=== PATIENT | male | born 1975 | race Caucasian/White ===

== ENCOUNTER 2020-01-04 19:17 | Inpatient (IN) | payer MEDICAID ==
--- NOTE | 2020-01-04 19:33 | ERPHSYRPT ---
- History of Present Illness Time Seen by Provider: 01/04/20 19:20 Source: patient Exam Limitations: no limitations Physician History: Pt states he has had decreased appetite and abdominal pain today. Pt c/o seizure activity with weakness in the legs about 90 minutes ago. Last BM was today & wnl. Pt states he vomited x2 within the past 90 minutes. Pt denies chest pain, shortness of air, previous seizure, recent trauma. Allergies/Adverse Reactions: No Known Drug Allergies Allergy (Unverified 01/04/20 19:18) Home Medications: Lisinopril 20 mg [Zestril 20 MG] 1 tab PO DAILY 01/04/20 [History] - Review of Systems Constitutional: No Fever Respiratory: No Dyspnea Cardiac: No Chest Pain Abdominal/Gastrointestinal: Abdominal Pain, Vomiting, Appetite Changes (decreased today), No Diarrhea Neurological: Seizure, Other (weakness in the legs), No Headache All Other Systems: Reviewed and Negative - Nursing Vital Signs Nursing Vital Signs: Initial Vital Signs Pulse Rate 106 H 01/04/20 19:18 Respiratory Rate 20 01/04/20 19:18 Blood Pressure 158/125 01/04/20 19:18 O2 Sat by Pulse Oximetry 98 01/04/20 19:18 Pain Scale Pain Intensity 0 - Physical Exam Eye Exam: bilateral eye: PERRL, EOMI Ears, Nose, Throat Exam: TMs normal, pharynx normal Neck Exam: normal inspection Respiratory: normal breath sounds Cardiovascular: normal heart sounds Gastrointestinal: soft, normal bowel sounds Back Exam: normal inspection Extremity Exam: normal range of motion Peripheral Pulses: dorsalis-pedis (R): 2+, dorsalis-pedis (L): 2+ 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 No acute intracranial abnormaliuty.) Abdomen/Pelvis CT Interpretation: Tele-radiologist Report (Fatty infiltration of the liver. Possible sludge in the gallbladder. No pericholecystic inflammatory change. No biliary dilatation. Very mild nonspecific perinephric stranding. No hydronephrosis. No renal or ureteral stones. No evidence of appendicitis, colitis or diverticulitis.) Ordered Tests: Active Orders 24 hr Category Date Time Status EKG-ER Only STAT Care 01/04/20 19:35 Active EKG-ER Only STAT Care 01/05/20 00:29 Active IV Insertion STAT Care 01/04/20 19:35 Active POCT Glucose Check STAT Care 01/04/20 19:35 Active Pulse Oximetry (ED) STAT Care 01/04/20 19:35 Active Seizure Precautions -SCCHED STAT Care 01/04/20 19:35 Active ABDOMEN AND PELVIS W/0 CONTRAS [CT] Stat Exams 01/04/20 21:49 Taken CHEST 1 VIEW (PORTABLE) Stat Exams 01/04/20 19:36 Completed HEAD WITHOUT CONTRAST [CT] Stat Exams 01/04/20 19:36 Taken BMP Stat Lab 01/05/20 00:58 Completed CBC W DIFF Stat Lab 01/04/20 19:59 Completed CMP Stat Lab 01/04/20 19:59 Completed CULTURE,URINE Stat Lab 01/04/20 19:36 Received ETHYL ALCOHOL Stat Lab 01/04/20 19:59 Completed MAGNESIUM Stat Lab 01/04/20 19:59 Completed POCT GLUCOSE Stat Lab 01/04/20 20:34 Completed TROPONIN Q3H Lab 01/04/20 19:59 Completed TROPONIN Q3H Lab 01/04/20 22:04 Completed TROPONIN Q3H Lab 01/05/20 00:58 Completed TROPONIN Q3H Lab 01/05/20 04:45 Ordered TROPONIN Q3H Lab 01/05/20 07:45 Ordered UA W/RFX UR CULTURE Stat Lab 01/04/20 19:36 Completed Urine Triage Profile Stat Lab 01/04/20 19:36 Completed Medication Summary Generic Name Dose Route Start Last Admin Trade Name Freq PRN Reason Stop Dose Admin Sodium Chloride 1,000 mls @ 100 mls/hr 01/04/20 19:45 01/04/20 20:00 Sodium Chloride 0.9% 1000 Ml IV 02/03/20 19:44 100 mls/hr .Q10H KAYLA Administration Discontinued Medications Generic Name Dose Route Start Last Admin Trade Name Freq PRN Reason Stop Dose Admin Fosphenytoin Sodium Confirm 01/04/20 19:53 Cerebyx 50 Mg/Ml Administered 01/04/20 19:54 Dose 500 mg .ROUTE .STK-MED ONE Fosphenytoin Sodium Confirm 01/04/20 23:31 Cerebyx 50 Mg/Ml Administered 01/04/20 23:32 Dose 500 mg .ROUTE .STK-MED ONE Fosphenytoin Sodium 500 mg/ 110 mls @ 300 mls/hr 01/04/20 19:35 01/04/20 20:00 Sodium Chloride IV 01/04/20 19:56 300 mls/hr STAT ONE Administration Sodium Chloride Confirm 01/04/20 19:52 Sodium Chloride 0.9% 100 Ml Ivpb Administered 01/04/20 19:53 Dose 100 mls @ ud IV .STK-MED ONE Potassium Chloride 20 meq in 100 mls @ 50 mls/hr 01/04/20 21:14 01/04/20 21:33 Potassium Chloride 20 Meq In Water 100ml IV 01/04/20 23:13 50 mls/hr STAT ONE Administration Potassium Chloride Confirm 01/04/20 21:20 Potassium Chloride 20 Meq In Water 100ml Administered 01/04/20 21:21 Dose 100 mls @ ud IV .STK-MED ONE Fosphenytoin Sodium 500 mg/ 110 mls @ 300 mls/hr 01/04/20 23:25 01/04/20 23:37 Sodium Chloride IV 01/04/20 23:46 300 mls/hr STAT ONE Administration Sodium Chloride Confirm 01/04/20 23:31 Sodium Chloride 0.9% 100 Ml Ivpb Administered 01/04/20 23:32 Dose 100 mls @ ud IV .STK-MED ONE Lorazepam 1 mg 01/04/20 19:35 01/04/20 20:00 Ativan 2 Mg/1 Ml Vial IV 01/04/20 19:36 1 mg STAT ONE Administration Lorazepam Confirm 01/04/20 19:52 Ativan 2 Mg/1 Ml Vial Administered 01/04/20 19:53 Dose 2 mg .ROUTE .STK-MED ONE Lorazepam 2 mg 01/05/20 00:32 01/05/20 00:44 Ativan 2 Mg/1 Ml Vial IV 01/05/20 00:33 Not Given STAT ONE Lorazepam Confirm 01/05/20 00:42 Ativan 2 Mg/1 Ml Vial Administered 01/05/20 00:43 Dose 2 mg .ROUTE .STK-MED ONE Lorazepam 2 mg 01/05/20 00:44 01/05/20 00:47 Ativan 2 Mg/1 Ml Vial IM 01/05/20 00:45 2 mg STAT ONE Administration Lab/Rad Data: Laboratory Result Diagrams 01/04/20 19:59 01/05/20 00:58 Laboratory Results 01/05/20 01/05/20 01/04/20 Range/Units 00:58 00:58 22:04 WBC (4.0-10.5) K/mm3 RBC (4.1-5.6) M/mm3 Hgb (12.5-18.0) gm/dl Hct (42-50) % MCV (78-100) fl MCH (26-32) pg MCHC (32-36) g/dl RDW (11.5-14.0) % Plt Count (150-450) K/mm3 MPV (7.5-11.0) fl Gran % (36.0-66.0) % Eos # (Auto) (0-0.5) Absolute Lymphs (auto) (1.0-4.6) Absolute Monos (auto) (0.0-1.3) Lymphocytes % (24.0-44.0) % Monocytes % (0.0-12.0) % Eosinophils % (0.00-5.0) % Basophils % (0.0-0.4) % Absolute Granulocytes (1.4-6.9) Basophils # (0-0.4) Sodium 130 L (137-145) mmol/L Potassium 3.4 L (3.5-5.1) mmol/L Chloride 95 L (98-107) mmol/L Carbon Dioxide 26 (22-30) mmol/L Anion Gap 12.5 (5-15) MEQ/L BUN 9 (9-20) mg/dL Creatinine 0.92 (0.66-1.25) mg/dL Estimated GFR > 60.0 ML/MIN Glucose 106 (74-106) mg/dL POC Glucometer (74 to 106) mg/dL Calcium 8.6 (8.4-10.2) mg/dL Magnesium (1.6-2.3) mg/dL Total Bilirubin (0.2-1.3) mg/dL AST (17-59) U/L ALT (0-50) U/L Alkaline Phosphatase (38-126) U/L Ammonia < 9 L (9-30) umol/L Troponin I 0.013 (0.000-0.034) ng/mL Serum Total Protein (6.3-8.2) g/dL Albumin (3.5-5.0) g/dL Urine Color (YELLOW) Urine Appearance (CLEAR) Urine pH (5-6) Ur Specific [place] (1.005-1.025) Urine Protein (Negative) Urine Ketones (NEGATIVE) Urine Blood (0-5) Jorge/ul Urine Nitrite (NEGATIVE) Urine Bilirubin (NEGATIVE) Urine Urobilinogen (0-1) mg/dL Ur Leukocyte Esterase (NEGATIVE) Urine WBC (Auto) (0-5) /HPF Urine RBC (Auto) (0-2) /HPF U Hyaline Cast (Auto) (0-2) /LPF U Epithel Cells (Auto) (FEW) /HPF Urine Bacteria (Auto) (NEGATIVE) /HPF Urine Mucus (Auto) (NEGATIVE) /HPF Urine Culture Reflexed (NO) Urine Glucose (NEGATIVE) mg/dL Urine Opiates Level (NEGATIVE) Ur Methadone (NEGATIVE) Urine Barbiturates (NEGATIVE) Ur Phencyclidine (PCP) (NEGATIVE) Urine Amphetamine (NEGATIVE) U Benzodiazepine Level (NEGATIVE) Urine Cocaine (NEGATIVE) Urine Marijuana (THC) (NEGATIVE) Ethyl Alcohol (0-10) mg/dL 01/04/20 01/04/20 01/04/20 Range/Units 22:04 20:34 19:59 WBC (4.0-10.5) K/mm3 RBC (4.1-5.6) M/mm3 Hgb (12.5-18.0) gm/dl Hct (42-50) % MCV (78-100) fl MCH (26-32) pg MCHC (32-36) g/dl RDW (11.5-14.0) % Plt Count (150-450) K/mm3 MPV (7.5-11.0) fl Gran % (36.0-66.0) % Eos # (Auto) (0-0.5) Absolute Lymphs (auto) (1.0-4.6) Absolute Monos (auto) (0.0-1.3) Lymphocytes % (24.0-44.0) % Monocytes % (0.0-12.0) % Eosinophils % (0.00-5.0) % Basophils % (0.0-0.4) % Absolute Granulocytes (1.4-6.9) Basophils # (0-0.4) Sodium (137-145) mmol/L Potassium (3.5-5.1) mmol/L Chloride (98-107) mmol/L Carbon Dioxide (22-30) mmol/L Anion Gap (5-15) MEQ/L BUN (9-20) mg/dL Creatinine (0.66-1.25) mg/dL Estimated GFR ML/MIN Glucose (74-106) mg/dL POC Glucometer 131 H (74 to 106) mg/dL Calcium (8.4-10.2) mg/dL Magnesium (1.6-2.3) mg/dL Total Bilirubin (0.2-1.3) mg/dL AST (17-59) U/L ALT (0-50) U/L Alkaline Phosphatase (38-126) U/L Ammonia (9-30) umol/L Troponin I < 0.012 < 0.012 (0.000-0.034) ng/mL Serum Total Protein (6.3-8.2) g/dL Albumin (3.5-5.0) g/dL Urine Color (YELLOW) Urine Appearance (CLEAR) Urine pH (5-6) Ur Specific [place] (1.005-1.025) Urine Protein (Negative) Urine Ketones (NEGATIVE) Urine Blood (0-5) Jorge/ul Urine Nitrite (NEGATIVE) Urine Bilirubin (NEGATIVE) Urine Urobilinogen (0-1) mg/dL Ur Leukocyte Esterase (NEGATIVE) Urine WBC (Auto) (0-5) /HPF Urine RBC (Auto) (0-2) /HPF U Hyaline Cast (Auto) (0-2) /LPF U Epithel Cells (Auto) (FEW) /HPF Urine Bacteria (Auto) (NEGATIVE) /HPF Urine Mucus (Auto) (NEGATIVE) /HPF Urine Culture Reflexed (NO) Urine Glucose (NEGATIVE) mg/dL Urine Opiates Level (NEGATIVE) Ur Methadone (NEGATIVE) Urine Barbiturates (NEGATIVE) Ur Phencyclidine (PCP) (NEGATIVE) Urine Amphetamine (NEGATIVE) U Benzodiazepine Level (NEGATIVE) Urine Cocaine (NEGATIVE) Urine Marijuana (THC) (NEGATIVE) Ethyl Alcohol (0-10) mg/dL 01/04/20 01/04/20 01/04/20 Range/Units 19:59 19:59 19:36 WBC 10.9 H (4.0-10.5) K/mm3 RBC 3.64 L (4.1-5.6) M/mm3 Hgb 12.9 (12.5-18.0) gm/dl Hct 39.0 L (42-50) % MCV 107.1 H (78-100) fl MCH 35.4 H (26-32) pg MCHC 33.1 (32-36) g/dl RDW 12.8 (11.5-14.0) % Plt Count 114 L (150-450) K/mm3 MPV 11.2 H (7.5-11.0) fl Gran % 82.2 H (36.0-66.0) % Eos # (Auto) 0 (0-0.5) Absolute Lymphs (auto) 0.69 L (1.0-4.6) Absolute Monos (auto) 1.21 (0.0-1.3) Lymphocytes % 6.3 L (24.0-44.0) % Monocytes % 11.1 (0.0-12.0) % Eosinophils % 0.0 (0.00-5.0) % Basophils % 0.4 (0.0-0.4) % Absolute Granulocytes 8.99 H (1.4-6.9) Basophils # 0.04 (0-0.4) Sodium 131 L (137-145) mmol/L Potassium 3.1 L (3.5-5.1) mmol/L Chloride 90 L (98-107) mmol/L Carbon Dioxide 21 L (22-30) mmol/L Anion Gap 22.8 H (5-15) MEQ/L BUN 9 (9-20) mg/dL Creatinine 1.03 (0.66-1.25) mg/dL Estimated GFR > 60.0 ML/MIN Glucose 139 H (74-106) mg/dL POC Glucometer (74 to 106) mg/dL Calcium 9.2 (8.4-10.2) mg/dL Magnesium 1.6 (1.6-2.3) mg/dL Total Bilirubin 1.60 H (0.2-1.3) mg/dL AST 137 H (17-59) U/L ALT 74 H (0-50) U/L Alkaline Phosphatase 168 H (38-126) U/L Ammonia (9-30) umol/L Troponin I (0.000-0.034) ng/mL Serum Total Protein 7.2 (6.3-8.2) g/dL Albumin 3.9 (3.5-5.0) g/dL Urine Color (YELLOW) Urine Appearance (CLEAR) Urine pH (5-6) Ur Specific [place] (1.005-1.025) Urine Protein (Negative) Urine Ketones (NEGATIVE) Urine Blood (0-5) Jorge/ul Urine Nitrite (NEGATIVE) Urine Bilirubin (NEGATIVE) Urine Urobilinogen (0-1) mg/dL Ur Leukocyte Esterase (NEGATIVE) Urine WBC (Auto) (0-5) /HPF Urine RBC (Auto) (0-2) /HPF U Hyaline Cast (Auto) (0-2) /LPF U Epithel Cells (Auto) (FEW) /HPF Urine Bacteria (Auto) (NEGATIVE) /HPF Urine Mucus (Auto) (NEGATIVE) /HPF Urine Culture Reflexed (NO) Urine Glucose (NEGATIVE) mg/dL Urine Opiates Level NEGATIVE (NEGATIVE) Ur Methadone NEGATIVE (NEGATIVE) Urine Barbiturates NEGATIVE (NEGATIVE) Ur Phencyclidine (PCP) NEGATIVE (NEGATIVE) Urine Amphetamine NEGATIVE (NEGATIVE) U Benzodiazepine Level NEGATIVE (NEGATIVE) Urine Cocaine NEGATIVE (NEGATIVE) Urine Marijuana (THC) NEGATIVE (NEGATIVE) Ethyl Alcohol < 10 (0-10) mg/dL 01/04/20 Range/Units 19:36 WBC (4.0-10.5) K/mm3 RBC (4.1-5.6) M/mm3 Hgb (12.5-18.0) gm/dl Hct (42-50) % MCV (78-100) fl MCH (26-32) pg MCHC (32-36) g/dl RDW (11.5-14.0) % Plt Count (150-450) K/mm3 MPV (7.5-11.0) fl Gran % (36.0-66.0) % Eos # (Auto) (0-0.5) Absolute Lymphs (auto) (1.0-4.6) Absolute Monos (auto) (0.0-1.3) Lymphocytes % (24.0-44.0) % Monocytes % (0.0-12.0) % Eosinophils % (0.00-5.0) % Basophils % (0.0-0.4) % Absolute Granulocytes (1.4-6.9) Basophils # (0-0.4) Sodium (137-145) mmol/L Potassium (3.5-5.1) mmol/L Chloride (98-107) mmol/L Carbon Dioxide (22-30) mmol/L Anion Gap (5-15) MEQ/L BUN (9-20) mg/dL Creatinine (0.66-1.25) mg/dL Estimated GFR ML/MIN Glucose (74-106) mg/dL POC Glucometer (74 to 106) mg/dL Calcium (8.4-10.2) mg/dL Magnesium (1.6-2.3) mg/dL Total Bilirubin (0.2-1.3) mg/dL AST (17-59) U/L ALT (0-50) U/L Alkaline Phosphatase (38-126) U/L Ammonia (9-30) umol/L Troponin I (0.000-0.034) ng/mL Serum Total Protein (6.3-8.2) g/dL Albumin (3.5-5.0) g/dL Urine Color GIA (YELLOW) Urine Appearance CLEAR (CLEAR) Urine pH 5.0 (5-6) Ur Specific [place] 1.021 (1.005-1.025) Urine Protein 100 (Negative) Urine Ketones SMALL (NEGATIVE) Urine Blood MODERATE (0-5) Jorge/ul Urine Nitrite NEGATIVE (NEGATIVE) Urine Bilirubin NEGATIVE (NEGATIVE) Urine Urobilinogen NEGATIVE (0-1) mg/dL Ur Leukocyte Esterase NEGATIVE (NEGATIVE) Urine WBC (Auto) 0-2 (0-5) /HPF Urine RBC (Auto) 0-2 (0-2) /HPF U Hyaline Cast (Auto) 6-10 (0-2) /LPF U Epithel Cells (Auto) RARE (FEW) /HPF Urine Bacteria (Auto) NONE SEEN (NEGATIVE) /HPF Urine Mucus (Auto) SLIGHT (NEGATIVE) /HPF Urine Culture Reflexed YES (NO) Urine Glucose NEGATIVE (NEGATIVE) mg/dL Urine Opiates Level (NEGATIVE) Ur Methadone (NEGATIVE) Urine Barbiturates (NEGATIVE) Ur Phencyclidine (PCP) (NEGATIVE) Urine Amphetamine (NEGATIVE) U Benzodiazepine Level (NEGATIVE) Urine Cocaine (NEGATIVE) Urine Marijuana (THC) (NEGATIVE) Ethyl Alcohol (0-10) mg/dL - Progress Progress: improved Discussed with Dr.: Mendoza (obs icu) - Departure Departure Disposition: Observation Clinical Impression: New onset seizure, Tachycardia, Abdominal pain, Vomiting, Hypokalemia Condition: Stable Critical Care Time: No Referrals: DOCTOR,NO FAMILY [Primary Care Provider] -
[2020-01-04] MEDS ORDERED: Ativan 2 MG/1 ML VIAL IV ONE (19:35)
[2020-01-04] MEDS ORDERED: cereBYX 50 MG/ML*** 500 MG in Sodium Chloride 0.9% 100 ML IVPB 100 ML IV ONE ×2 (19:35→23:25)
[2020-01-04] MEDS ORDERED: Sodium Chloride 0.9% 1000 ML 1,000 ML IV SCH (19:45)
[2020-01-04] MEDS ORDERED: Ativan 2 MG/1 ML VIAL ONE (19:52)
[2020-01-04] MEDS ORDERED: Sodium Chloride 0.9% 100 ML IVPB 100 ML IV ONE ×2 (19:52→23:31)
[2020-01-04] MEDS ORDERED: Sodium Chloride 0.9% 1000 ML 1,000 ML ONE (19:53)
[2020-01-04] MEDS ORDERED: cereBYX 50 MG/ML ONE ×2 (19:53→23:31)
[2020-01-04 20:13] LABS: Absolute Neutrophil Ct (ANC) 8.99 (1.4-6.9); BASOPHIL % 0.4 % (0.0-0.4); Basophil (Absolute #) 0.04 (0-0.4); Eosinophil (Absolute #) 0 (0-0.5); Hemoglobin 12.9 gm/dl (12.5-18.0); Lymphocyte (Absolute #) 0.69 (1.0-4.6); Lymphocytes % 6.3 % (24.0-44.0); Mean Cell Volume 107.1 fl (78-100); Mean Corpuscular Hemoglobin 35.4 pg (26-32); Mean Corpuscular Hgb Concent. 33.1 g/dl (32-36); Mean Platelet Volume 11.2 fl (7.5-11.0); Monocyte (Absolute #) 1.21 (0.0-1.3); Monocytes % 11.1 % (0.0-12.0); Neutrophil % 82.2 % (36.0-66.0); Platelet Count 114 K/mm3 (150-450); Red Blood Count 3.64 M/mm3 (4.1-5.6); Red Cell Distribution Width 12.8 % (11.5-14.0); White Blood Count 10.9 K/mm3 (4.0-10.5)
[2020-01-04 20:20] LABS: ALBUMIN 3.9 g/dL (3.5-5.0); ALKALINE PHOSPHATASE 168 U/L (38-126); ANION GAP 22.8 MEQ/L (5-15); BLOOD UREA NITROGEN 9 mg/dL (9-20); CHLORIDE 90 mmol/L (98-107); Calcium 9.2 mg/dL (8.4-10.2); Carbon Dioxide 21 mmol/L (22-30); Creatinine 1 1.03 mg/dL (0.66-1.25); EST GLOMERULAR FILTRATION RATE > 60.0 ML/MIN; Glucose 139 mg/dL (74-106); MAGNESIUM 1.6 mg/dL (1.6-2.3); Potassium 3.1 mmol/L (3.5-5.1); SGOT/AST 137 U/L (17-59); SODIUM 131 mmol/L (137-145); Total Protein 7.2 g/dL (6.3-8.2)
[2020-01-04 20:26] LABS: SGPT/ALT 74 U/L (0-50)
[2020-01-04 20:37] LABS: ETHYL ALCOHOL < 10 mg/dL (0-10)
[2020-01-04 20:57] LABS: Amphetamine,Urine NEGATIVE (NEGATIVE); Barbiturate,Urine NEGATIVE (NEGATIVE); Benzodiazepine,Urine NEGATIVE (NEGATIVE); Cocaine,Urine NEGATIVE (NEGATIVE); Methadone,Urine NEGATIVE (NEGATIVE); Opiate,Urine NEGATIVE (NEGATIVE); PCP,Urine NEGATIVE (NEGATIVE); THC,Urine NEGATIVE (NEGATIVE)
--- NOTE | 2020-01-04 20:59 | XRAY ---
Indication: Seizure. Comparison: None Portable chest demonstrates normal heart, lungs, and bony thorax.
[2020-01-04 21:01] LABS: Appearance CLEAR (CLEAR); Bilirubin NEGATIVE (NEGATIVE); Blood MODERATE Ery/ul (0-5); Epithelial Cells RARE /HPF (FEW); Glucose NEGATIVE (NEGATIVE); Ketones SMALL (NEGATIVE); Leukocyte Esterase NEGATIVE (NEGATIVE); Mucus SLIGHT /HPF (NEGATIVE); Nitrite NEGATIVE (NEGATIVE); Protein,Urine Dip 100 (Negative); RBC 0-2 /HPF (0-2); Specific Gravity 1.021 (1.005-1.025); Urobilinogen NEGATIVE mg/dL (0-1); WBC 0-2 /HPF (0-5)
[2020-01-04 21:02] LABS: Bacteria NONE SEEN /HPF (NEGATIVE)
[2020-01-04] MEDS ORDERED: POTASSIUM CHLORIDE 20 mEq IN WATER 100ML 20 MEQ/100 ML BAG IV ONE (21:14)
[2020-01-04] MEDS ORDERED: POTASSIUM CHLORIDE 20 mEq IN WATER 100ML 100 ML IV ONE (21:20)
[2020-01-05] MEDS ORDERED: Ativan 2 MG/1 ML VIAL IV ONE (00:32)
[2020-01-05] MEDS ORDERED: Ativan 2 MG/1 ML VIAL ONE (00:42)
[2020-01-05] MEDS ORDERED: Ativan 2 MG/1 ML VIAL IM ONE (00:44)
[2020-01-05 01:13] LABS: ANION GAP 12.5 MEQ/L (5-15); BLOOD UREA NITROGEN 9 mg/dL (9-20); CHLORIDE 95 mmol/L (98-107); Calcium 8.6 mg/dL (8.4-10.2); Carbon Dioxide 26 mmol/L (22-30); Creatinine 1 0.92 mg/dL (0.66-1.25); EST GLOMERULAR FILTRATION RATE > 60.0 ML/MIN; Glucose 106 mg/dL (74-106); Potassium 3.4 mmol/L (3.5-5.1); SODIUM 130 mmol/L (137-145)
[2020-01-05] MEDS ORDERED: POTASSIUM CHLORIDE 20 mEq IN WATER 100ML 20 MEQ/100 ML BAG IV ONE (01:38)
[2020-01-05] MEDS ORDERED: Zofran 4 MG/2 ML VIAL IV PRN (01:38)
[2020-01-05] MEDS ORDERED: Sodium Chloride 0.9% 1000 ML 1,000 ML IV SCH (01:45)
[2020-01-05] MEDS ORDERED: TYLENOL 325 MG PO PRN (04:55)
[2020-01-05] MEDS ORDERED: TYLENOL 325 MG ONE (05:21)
[2020-01-05] MEDS: Ativan 2 MG/1 ML VIAL IV PRN ×5 (05:23→20:07)
[2020-01-05 06:02] LABS: Absolute Neutrophil Ct (ANC) 6.57 (1.4-6.9); BASOPHIL % 0.1 % (0.0-0.4); Basophil (Absolute #) 0.01 (0-0.4); Eosinophil (Absolute #) 0 (0-0.5); Hematocrit 34.2 % (42-50); Hemoglobin 11.4 gm/dl (12.5-18.0); Lymphocyte (Absolute #) 0.64 (1.0-4.6); Lymphocytes % 7.4 % (24.0-44.0); Mean Cell Volume 107.5 fl (78-100); Mean Corpuscular Hemoglobin 35.8 pg (26-32); Mean Corpuscular Hgb Concent. 33.3 g/dl (32-36); Mean Platelet Volume 11.4 fl (7.5-11.0); Monocyte (Absolute #) 1.48 (0.0-1.3); Neutrophil % 75.5 % (36.0-66.0); Platelet Count 91 K/mm3 (150-450); Red Blood Count 3.18 M/mm3 (4.1-5.6); Red Cell Distribution Width 12.7 % (11.5-14.0); White Blood Count 8.7 K/mm3 (4.0-10.5)
[2020-01-05 06:25] LABS: ALBUMIN 3.2 g/dL (3.5-5.0); ALKALINE PHOSPHATASE 125 U/L (38-126); ANION GAP 11.5 MEQ/L (5-15); BLOOD UREA NITROGEN 10 mg/dL (9-20); CHLORIDE 96 mmol/L (98-107); Calcium 8.5 mg/dL (8.4-10.2); Carbon Dioxide 27 mmol/L (22-30); Creatinine 1 0.95 mg/dL (0.66-1.25); EST GLOMERULAR FILTRATION RATE > 60.0 ML/MIN; Glucose 84 mg/dL (74-106); Potassium 3.6 mmol/L (3.5-5.1); SGOT/AST 86 U/L (17-59); SGPT/ALT 59 U/L (0-50); SODIUM 130 mmol/L (137-145); Total Protein 6.2 g/dL (6.3-8.2)
[2020-01-05 06:28] LABS: Slide Review 1 YES
[2020-01-05 06:32] LABS: TROPONIN < 0.012 ng/mL (0.000-0.034)
--- NOTE | 2020-01-05 07:03 | XRAY ---
Indication: Abdomen pain. Abnormal liver lab values. Multiple contiguous axial images obtained through the abdomen and pelvis without contrast as ordered. Comparison: None Lung bases are clear. Heart is not enlarged. Distal esophagus demonstrates circumferential wall thickening, possible esophagitis. Noncontrasted stomach and bowel loops appear nonobstructed. Appendix not seen. No free fluid/air. Diffuse fatty liver. Remaining gallbladder, pancreas, spleen, adrenal glands, kidneys, ureters, and bladder appear unremarkable for noncontrasted exam. Minimal aortic calcifications without AAA. Osseous structures intact. Impression: 1. Fatty liver. 2. Distal esophageal wall thickening. Rule out esophagitis. 3. Remaining CT abdomen/pelvis without contrast exam is negative. Comment: Preliminary interpretation was made by [facility]. No critical discrepancy.
--- NOTE | 2020-01-05 07:06 | XRAY ---
Indication: Seizure. Multiple contiguous axial images obtained through the head without contrast. Comparison: None Ventriculosulcal pattern appears symmetric. Age-appropriate atrophy. No acute intracranial hemorrhage, abnormal extra-axial fluid collection, or mass effect. Fourth ventricle is midline without hydrocephalus. Ch-white matter differentiation preserved. Bony calvarium intact. Visualized paranasal sinuses and mastoid air cells are clear. Impression: Negative CT head without contrast exam. Comment: Preliminary interpretation was made by [facility]. No critical discrepancy.
--- NOTE | 2020-01-05 09:20 | PCM.HP ---
History of Present Illness - Chief Complaint Chief Complaint: new onset seizure History of Present Illness: is a 44 year old male who was brought to the ER by a friend last night due to seizure activity. He is apparently from out of town and here camping, he has been drinking heavily around a fifth of hard liquor daily for the last year. He is very difficult to understand, he is a poor historian but he is oriented to self and place. He first states he quit drinking a week or two ago, when pressed about last drink he states "maybe half of that" and agrees upon in the last 3-4 days. He complains of some pain in his upper stomach, no vomiting. states he takes bp meds, denies any illicit drug use, he did have a witnessed seizure in ER apparently. - Review of Systems Constitutional: No Fever, No Chills Respiratory: No Cough, No Short Of Breath Cardiac: No Chest Pain, No Edema, No Syncope Abdominal/Gastrointestinal: Abdominal Pain, No Nausea, No Vomiting, No Diarrhea Skin: No Rash Neurological: Seizure All Other Systems: Reviewed and Negative Medications & Allergies Home Medications: Home Medication List Lisinopril 20 mg [Zestril 20 MG] 1 tab PO DAILY 01/04/20 [History Confirmed 01/04/20] Allergies/Adverse Reactions: Allergies Allergy/AdvReac Type Severity Reaction Status Date / Time No Known Drug Allergies Allergy Unverified 01/04/20 19:18 - Past Medical History Past Medical History: Yes Neurological History: Seizures ENT History: No Pertinent History Cardiac History: Hypertension Respiratory History: No Pertinent History Endocrine Medical History: No Pertinent History Musculoskelatal History: No Pertinent History GI Medical History: No Pertinent History History: No Pertinent History Pyscho-Social History: No Pertinent History Male Reproductive Disorders: STD's Comment: hx chylamidia - Past Surgical History Past Surgical History: No Neuro Surgical History: No Pertinent History Cardiac History: No Pertinent History Respiratory Surgery: No Pertinent History GI Surgical History: No Pertinent History Genitourinary Surgical Hx: No Pertinent History Musculskeletal Surgical Hx: No Pertinent History Male Surgical History: No Pertinent History - Social History Smoking Status: Former smoker Exposure to second hand smoke: No Alcohol: Daily Drug Use: marijuana - Physical Exam Vital Signs: Vital Signs - 24 hr Temp Pulse Resp BP Pulse Ox 01/05/20 08:00 99.3 F 87 18 158/104 95 01/05/20 04:45 117 H 16 97 01/05/20 04:14 98.4 F 109 H 18 144/106 96 01/05/20 01:37 98 01/05/20 01:00 112 H 16 141/103 97 01/05/20 00:00 116 H 16 136/94 97 01/04/20 23:00 96 H 18 150/113 99 01/04/20 22:00 112 H 18 164/114 98 01/04/20 21:00 118 H 18 163/118 95 01/04/20 20:18 126 H 20 176/116 98 01/04/20 19:35 97 01/04/20 19:18 106 H 20 158/125 98 General Appearance: no apparent distress Neurologic Exam: alert, cooperative, intoxicated appearance, slurred speech, other (tremor, shaking present. difficult to formulate sentences but requiring recurrent ativan doses on detox protocol, mildly hypertensive and tachycardic, tremulous) Respiratory Exam: normal breath sounds, lungs clear, No respiratory distress Cardiovascular Exam: regular rate/rhythm, normal heart sounds, normal peripheral pulses Gastrointestinal/Abdomen Exam: soft, normal bowel sounds, No tenderness, No mass Skin Exam: normal color, warm, dry, No rash Results - Labs Lab/Micro Results: Lab Results-Last 24 Hours 01/04/20 01/04/20 01/04/20 Range/Units 19:36 19:36 19:59 WBC 10.9 H (4.0-10.5) K/mm3 RBC 3.64 L (4.1-5.6) M/mm3 Hgb 12.9 (12.5-18.0) gm/dl Hct 39.0 L (42-50) % MCV 107.1 H (78-100) fl MCH 35.4 H (26-32) pg MCHC 33.1 (32-36) g/dl RDW 12.8 (11.5-14.0) % Plt Count 114 L (150-450) K/mm3 MPV 11.2 H (7.5-11.0) fl Gran % 82.2 H (36.0-66.0) % Eos # (Auto) 0 (0-0.5) Absolute Lymphs (auto) 0.69 L (1.0-4.6) Absolute Monos (auto) 1.21 (0.0-1.3) Lymphocytes % 6.3 L (24.0-44.0) % Monocytes % 11.1 (0.0-12.0) % Eosinophils % 0.0 (0.00-5.0) % Basophils % 0.4 (0.0-0.4) % Absolute Granulocytes 8.99 H (1.4-6.9) Basophils # 0.04 (0-0.4) Sodium (137-145) mmol/L Potassium (3.5-5.1) mmol/L Chloride (98-107) mmol/L Carbon Dioxide (22-30) mmol/L Anion Gap (5-15) MEQ/L BUN (9-20) mg/dL Creatinine (0.66-1.25) mg/dL Estimated GFR ML/MIN Glucose (74-106) mg/dL POC Glucometer (74 to 106) mg/dL Calcium (8.4-10.2) mg/dL Magnesium (1.6-2.3) mg/dL Total Bilirubin (0.2-1.3) mg/dL AST (17-59) U/L ALT (0-50) U/L Alkaline Phosphatase (38-126) U/L Ammonia (9-30) umol/L Troponin I (0.000-0.034) ng/mL Serum Total Protein (6.3-8.2) g/dL Albumin (3.5-5.0) g/dL Urine Color GIA (YELLOW) Urine Appearance CLEAR (CLEAR) Urine pH 5.0 (5-6) Ur Specific [place] 1.021 (1.005-1.025) Urine Protein 100 (Negative) Urine Ketones SMALL (NEGATIVE) Urine Blood MODERATE (0-5) Jorge/ul Urine Nitrite NEGATIVE (NEGATIVE) Urine Bilirubin NEGATIVE (NEGATIVE) Urine Urobilinogen NEGATIVE (0-1) mg/dL Ur Leukocyte Esterase NEGATIVE (NEGATIVE) Urine WBC (Auto) 0-2 (0-5) /HPF Urine RBC (Auto) 0-2 (0-2) /HPF U Hyaline Cast (Auto) 6-10 (0-2) /LPF U Epithel Cells (Auto) RARE (FEW) /HPF Urine Bacteria (Auto) NONE SEEN (NEGATIVE) /HPF Urine Mucus (Auto) SLIGHT (NEGATIVE) /HPF Urine Culture Reflexed YES (NO) Urine Glucose NEGATIVE (NEGATIVE) mg/dL Urine Opiates Level NEGATIVE (NEGATIVE) Ur Methadone NEGATIVE (NEGATIVE) Urine Barbiturates NEGATIVE (NEGATIVE) Ur Phencyclidine (PCP) NEGATIVE (NEGATIVE) Urine Amphetamine NEGATIVE (NEGATIVE) U Benzodiazepine Level NEGATIVE (NEGATIVE) Urine Cocaine NEGATIVE (NEGATIVE) Urine Marijuana (THC) NEGATIVE (NEGATIVE) Ethyl Alcohol (0-10) mg/dL Slides for Path Review 01/04/20 01/04/20 01/04/20 Range/Units 19:59 19:59 20:34 WBC (4.0-10.5) K/mm3 RBC (4.1-5.6) M/mm3 Hgb (12.5-18.0) gm/dl Hct (42-50) % MCV (78-100) fl MCH (26-32) pg MCHC (32-36) g/dl RDW (11.5-14.0) % Plt Count (150-450) K/mm3 MPV (7.5-11.0) fl Gran % (36.0-66.0) % Eos # (Auto) (0-0.5) Absolute Lymphs (auto) (1.0-4.6) Absolute Monos (auto) (0.0-1.3) Lymphocytes % (24.0-44.0) % Monocytes % (0.0-12.0) % Eosinophils % (0.00-5.0) % Basophils % (0.0-0.4) % Absolute Granulocytes (1.4-6.9) Basophils # (0-0.4) Sodium 131 L (137-145) mmol/L Potassium 3.1 L (3.5-5.1) mmol/L Chloride 90 L (98-107) mmol/L Carbon Dioxide 21 L (22-30) mmol/L Anion Gap 22.8 H (5-15) MEQ/L BUN 9 (9-20) mg/dL Creatinine 1.03 (0.66-1.25) mg/dL Estimated GFR > 60.0 ML/MIN Glucose 139 H (74-106) mg/dL POC Glucometer 131 H (74 to 106) mg/dL Calcium 9.2 (8.4-10.2) mg/dL Magnesium 1.6 (1.6-2.3) mg/dL Total Bilirubin 1.60 H (0.2-1.3) mg/dL AST 137 H (17-59) U/L ALT 74 H (0-50) U/L Alkaline Phosphatase 168 H (38-126) U/L Ammonia (9-30) umol/L Troponin I < 0.012 (0.000-0.034) ng/mL Serum Total Protein 7.2 (6.3-8.2) g/dL Albumin 3.9 (3.5-5.0) g/dL Urine Color (YELLOW) Urine Appearance (CLEAR) Urine pH (5-6) Ur Specific [place] (1.005-1.025) Urine Protein (Negative) Urine Ketones (NEGATIVE) Urine Blood (0-5) Jorge/ul Urine Nitrite (NEGATIVE) Urine Bilirubin (NEGATIVE) Urine Urobilinogen (0-1) mg/dL Ur Leukocyte Esterase (NEGATIVE) Urine WBC (Auto) (0-5) /HPF Urine RBC (Auto) (0-2) /HPF U Hyaline Cast (Auto) (0-2) /LPF U Epithel Cells (Auto) (FEW) /HPF Urine Bacteria (Auto) (NEGATIVE) /HPF Urine Mucus (Auto) (NEGATIVE) /HPF Urine Culture Reflexed (NO) Urine Glucose (NEGATIVE) mg/dL Urine Opiates Level (NEGATIVE) Ur Methadone (NEGATIVE) Urine Barbiturates (NEGATIVE) Ur Phencyclidine (PCP) (NEGATIVE) Urine Amphetamine (NEGATIVE) U Benzodiazepine Level (NEGATIVE) Urine Cocaine (NEGATIVE) Urine Marijuana (THC) (NEGATIVE) Ethyl Alcohol < 10 (0-10) mg/dL Slides for Path Review 01/04/20 01/04/20 01/05/20 Range/Units 22:04 22:04 00:58 WBC (4.0-10.5) K/mm3 RBC (4.1-5.6) M/mm3 Hgb (12.5-18.0) gm/dl Hct (42-50) % MCV (78-100) fl MCH (26-32) pg MCHC (32-36) g/dl RDW (11.5-14.0) % Plt Count (150-450) K/mm3 MPV (7.5-11.0) fl Gran % (36.0-66.0) % Eos # (Auto) (0-0.5) Absolute Lymphs (auto) (1.0-4.6) Absolute Monos (auto) (0.0-1.3) Lymphocytes % (24.0-44.0) % Monocytes % (0.0-12.0) % Eosinophils % (0.00-5.0) % Basophils % (0.0-0.4) % Absolute Granulocytes (1.4-6.9) Basophils # (0-0.4) Sodium (137-145) mmol/L Potassium (3.5-5.1) mmol/L Chloride (98-107) mmol/L Carbon Dioxide (22-30) mmol/L Anion Gap (5-15) MEQ/L BUN (9-20) mg/dL Creatinine (0.66-1.25) mg/dL Estimated GFR ML/MIN Glucose (74-106) mg/dL POC Glucometer (74 to 106) mg/dL Calcium (8.4-10.2) mg/dL Magnesium (1.6-2.3) mg/dL Total Bilirubin (0.2-1.3) mg/dL AST (17-59) U/L ALT (0-50) U/L Alkaline Phosphatase (38-126) U/L Ammonia < 9 L (9-30) umol/L Troponin I < 0.012 0.013 (0.000-0.034) ng/mL Serum Total Protein (6.3-8.2) g/dL Albumin (3.5-5.0) g/dL Urine Color (YELLOW) Urine Appearance (CLEAR) Urine pH (5-6) Ur Specific [place] (1.005-1.025) Urine Protein (Negative) Urine Ketones (NEGATIVE) Urine Blood (0-5) Jorge/ul Urine Nitrite (NEGATIVE) Urine Bilirubin (NEGATIVE) Urine Urobilinogen (0-1) mg/dL Ur Leukocyte Esterase (NEGATIVE) Urine WBC (Auto) (0-5) /HPF Urine RBC (Auto) (0-2) /HPF U Hyaline Cast (Auto) (0-2) /LPF U Epithel Cells (Auto) (FEW) /HPF Urine Bacteria (Auto) (NEGATIVE) /HPF Urine Mucus (Auto) (NEGATIVE) /HPF Urine Culture Reflexed (NO) Urine Glucose (NEGATIVE) mg/dL Urine Opiates Level (NEGATIVE) Ur Methadone (NEGATIVE) Urine Barbiturates (NEGATIVE) Ur Phencyclidine (PCP) (NEGATIVE) Urine Amphetamine (NEGATIVE) U Benzodiazepine Level (NEGATIVE) Urine Cocaine (NEGATIVE) Urine Marijuana (THC) (NEGATIVE) Ethyl Alcohol (0-10) mg/dL Slides for Path Review 01/05/20 01/05/20 01/05/20 Range/Units 00:58 05:45 05:45 WBC 8.7 (4.0-10.5) K/mm3 RBC 3.18 L (4.1-5.6) M/mm3 Hgb 11.4 L (12.5-18.0) gm/dl Hct 34.2 L (42-50) % MCV 107.5 H (78-100) fl MCH 35.8 H (26-32) pg MCHC 33.3 (32-36) g/dl RDW 12.7 (11.5-14.0) % Plt Count 91 L (150-450) K/mm3 MPV 11.4 H (7.5-11.0) fl Gran % 75.5 H (36.0-66.0) % Eos # (Auto) 0 (0-0.5) Absolute Lymphs (auto) 0.64 L (1.0-4.6) Absolute Monos (auto) 1.48 H (0.0-1.3) Lymphocytes % 7.4 L (24.0-44.0) % Monocytes % 17.0 H (0.0-12.0) % Eosinophils % 0.0 (0.00-5.0) % Basophils % 0.1 (0.0-0.4) % Absolute Granulocytes 6.57 (1.4-6.9) Basophils # 0.01 (0-0.4) Sodium 130 L 130 L (137-145) mmol/L Potassium 3.4 L 3.6 (3.5-5.1) mmol/L Chloride 95 L 96 L (98-107) mmol/L Carbon Dioxide 26 27 (22-30) mmol/L Anion Gap 12.5 11.5 (5-15) MEQ/L BUN 9 10 (9-20) mg/dL Creatinine 0.92 0.95 (0.66-1.25) mg/dL Estimated GFR > 60.0 > 60.0 ML/MIN Glucose 106 84 (74-106) mg/dL POC Glucometer (74 to 106) mg/dL Calcium 8.6 8.5 (8.4-10.2) mg/dL Magnesium (1.6-2.3) mg/dL Total Bilirubin 1.70 H (0.2-1.3) mg/dL AST 86 H (17-59) U/L ALT 59 H (0-50) U/L Alkaline Phosphatase 125 (38-126) U/L Ammonia (9-30) umol/L Troponin I < 0.012 (0.000-0.034) ng/mL Serum Total Protein 6.2 L (6.3-8.2) g/dL Albumin 3.2 L (3.5-5.0) g/dL Urine Color (YELLOW) Urine Appearance (CLEAR) Urine pH (5-6) Ur Specific [place] (1.005-1.025) Urine Protein (Negative) Urine Ketones (NEGATIVE) Urine Blood (0-5) Jorge/ul Urine Nitrite (NEGATIVE) Urine Bilirubin (NEGATIVE) Urine Urobilinogen (0-1) mg/dL Ur Leukocyte Esterase (NEGATIVE) Urine WBC (Auto) (0-5) /HPF Urine RBC (Auto) (0-2) /HPF U Hyaline Cast (Auto) (0-2) /LPF U Epithel Cells (Auto) (FEW) /HPF Urine Bacteria (Auto) (NEGATIVE) /HPF Urine Mucus (Auto) (NEGATIVE) /HPF Urine Culture Reflexed (NO) Urine Glucose (NEGATIVE) mg/dL Urine Opiates Level (NEGATIVE) Ur Methadone (NEGATIVE) Urine Barbiturates (NEGATIVE) Ur Phencyclidine (PCP) (NEGATIVE) Urine Amphetamine (NEGATIVE) U Benzodiazepine Level (NEGATIVE) Urine Cocaine (NEGATIVE) Urine Marijuana (THC) (NEGATIVE) Ethyl Alcohol (0-10) mg/dL Slides for Path Review YES 01/05/20 Range/Units 08:36 WBC (4.0-10.5) K/mm3 RBC (4.1-5.6) M/mm3 Hgb (12.5-18.0) gm/dl Hct (42-50) % MCV (78-100) fl MCH (26-32) pg MCHC (32-36) g/dl RDW (11.5-14.0) % Plt Count (150-450) K/mm3 MPV (7.5-11.0) fl Gran % (36.0-66.0) % Eos # (Auto) (0-0.5) Absolute Lymphs (auto) (1.0-4.6) Absolute Monos (auto) (0.0-1.3) Lymphocytes % (24.0-44.0) % Monocytes % (0.0-12.0) % Eosinophils % (0.00-5.0) % Basophils % (0.0-0.4) % Absolute Granulocytes (1.4-6.9) Basophils # (0-0.4) Sodium (137-145) mmol/L Potassium 3.5 (3.5-5.1) mmol/L Chloride (98-107) mmol/L Carbon Dioxide (22-30) mmol/L Anion Gap (5-15) MEQ/L BUN (9-20) mg/dL Creatinine (0.66-1.25) mg/dL Estimated GFR ML/MIN Glucose (74-106) mg/dL POC Glucometer (74 to 106) mg/dL Calcium (8.4-10.2) mg/dL Magnesium (1.6-2.3) mg/dL Total Bilirubin (0.2-1.3) mg/dL AST (17-59) U/L ALT (0-50) U/L Alkaline Phosphatase (38-126) U/L Ammonia (9-30) umol/L Troponin I (0.000-0.034) ng/mL Serum Total Protein (6.3-8.2) g/dL Albumin (3.5-5.0) g/dL Urine Color (YELLOW) Urine Appearance (CLEAR) Urine pH (5-6) Ur Specific [place] (1.005-1.025) Urine Protein (Negative) Urine Ketones (NEGATIVE) Urine Blood (0-5) Jorge/ul Urine Nitrite (NEGATIVE) Urine Bilirubin (NEGATIVE) Urine Urobilinogen (0-1) mg/dL Ur Leukocyte Esterase (NEGATIVE) Urine WBC (Auto) (0-5) /HPF Urine RBC (Auto) (0-2) /HPF U Hyaline Cast (Auto) (0-2) /LPF U Epithel Cells (Auto) (FEW) /HPF Urine Bacteria (Auto) (NEGATIVE) /HPF Urine Mucus (Auto) (NEGATIVE) /HPF Urine Culture Reflexed (NO) Urine Glucose (NEGATIVE) mg/dL Urine Opiates Level (NEGATIVE) Ur Methadone (NEGATIVE) Urine Barbiturates (NEGATIVE) Ur Phencyclidine (PCP) (NEGATIVE) Urine Amphetamine (NEGATIVE) U Benzodiazepine Level (NEGATIVE) Urine Cocaine (NEGATIVE) Urine Marijuana (THC) (NEGATIVE) Ethyl Alcohol (0-10) mg/dL Slides for Path Review Microbiology 01/04/20 19:36 Urine Culture - Preliminary Urine, Void NO GROWTH TO DATE Accuchecks Date 01/04/20 Time 20:35 - Radiology Impressions Radiology Exams & Impressions: Radiology Procedures Category Date Time Status ABDOMEN AND PELVIS W/0 CONTRAS [CT] Stat Exams 01/04/20 21:49 Completed CHEST 1 VIEW (PORTABLE) Stat Exams 01/04/20 19:36 Completed HEAD WITHOUT CONTRAST [CT] Stat Exams 01/04/20 19:36 Completed - Other Procedures and Tests Respiratory Therapy 01/05/20 01:38 Oxygen Nasal Cannula 2 lpm Assessment/Plan (1) Alcohol withdrawal Current Visit: Yes Status: Acute Code(s): F10.239 - ALCOHOL DEPENDENCE WITH WITHDRAWAL, UNSPECIFIED (2) Seizure Current Visit: Yes Status: Acute Assessment & Plan: likely related to alcohol withdrawal, will obtain teleneurology consult if able for recommendations as far as anti-eppileptic drugs in addition to ativan detox protocol. was loaded with cerebyx in ER Code(s): R56.9 - UNSPECIFIED CONVULSIONS
[2020-01-05] MEDS ORDERED: Dilantin 100 MG PO SCH (10:00)
[2020-01-05] MEDS ORDERED: VITAMIN B-1 100 MG PO SCH (10:00)
[2020-01-05] MEDS: Dextrose 5%-Lr IV Solution 1000 ML 1,000 ML IV SCH ×2 (10:52→21:27)
[2020-01-05] MEDS ORDERED: FLUZONE QUAD 2020-2021 SYRINGE IM ONE (12:00)
[2020-01-05] MEDS: THIAMINE 200 MG/2 ML IV SCH ×2 (14:06→21:05)
[2020-01-06 04:42] LABS: BASOPHIL % 0.4 % (0.0-0.4); Basophil (Absolute #) 0.02 (0-0.4); Eosinophil % 0.4 % (0.00-5.0); Eosinophil (Absolute #) 0.02 (0-0.5); Hematocrit 31.7 % (42-50); Hemoglobin 10.3 gm/dl (12.5-18.0); Lymphocyte (Absolute #) 0.83 (1.0-4.6); Lymphocytes % 18.2 % (24.0-44.0); Mean Cell Volume 109.3 fl (78-100); Mean Corpuscular Hemoglobin 35.5 pg (26-32); Mean Corpuscular Hgb Concent. 32.5 g/dl (32-36); Mean Platelet Volume 11.2 fl (7.5-11.0); Monocytes % 17.5 % (0.0-12.0); Neutrophil % 63.5 % (36.0-66.0); Platelet Count 85 K/mm3 (150-450); Red Cell Distribution Width 12.6 % (11.5-14.0); White Blood Count 4.6 K/mm3 (4.0-10.5)
[2020-01-06 05:03] LABS: ALBUMIN 2.6 g/dL (3.5-5.0); ALKALINE PHOSPHATASE 100 U/L (38-126); ANION GAP 5.7 MEQ/L (5-15); BLOOD UREA NITROGEN 10 mg/dL (9-20); CHLORIDE 101 mmol/L (98-107); Calcium 8.3 mg/dL (8.4-10.2); Carbon Dioxide 30 mmol/L (22-30); Creatinine 1 0.83 mg/dL (0.66-1.25); EST GLOMERULAR FILTRATION RATE > 60.0 ML/MIN; Glucose 101 mg/dL (74-106); MAGNESIUM 1.5 mg/dL (1.6-2.3); SGOT/AST 67 U/L (17-59); SGPT/ALT 44 U/L (0-50); SODIUM 134 mmol/L (137-145); Total Protein 5.3 g/dL (6.3-8.2)
[2020-01-06 06:53] LABS: Slide Review 1 YES
[2020-01-06] MEDS: Dextrose 5%-Lr IV Solution 1000 ML 1,000 ML IV SCH ×2 (07:26→17:49)
--- NOTE | 2020-01-06 08:21 | PCM.NOTE ---
Date and Time: 01/06/20815 Subjective Assessment: patient is much more alert and able to answer questions today, denies any pain. states he last drank alcohol the day he came to the hospital. Objective Exam General Appearance: no apparent distress Neurologic Exam: alert, oriented x 3, cooperative, No nml cerebellar function, No nml station & gait Skin Exam: normal color, warm, dry Eye Exam: PERRL, EOMI, eyes nml inspection Respiratory Exam: normal breath sounds, lungs clear, No respiratory distress Cardiovascular Exam: regular rate/rhythm, normal heart sounds Gastrointestinal/Abdomen Exam: soft, No tenderness, No mass Extremity Exam: normal inspection, normal range of motion OBJECTIVE DATA Vital Signs: Vital Signs - 24 hr Temp Pulse Resp BP Pulse Ox 01/06/20 08:00 79 01/06/20 07:32 98.2 F 85 21 164/113 98 01/06/20 04:00 98.1 F 91 H 18 156/116 97 01/06/20 00:01 97 H 01/06/20 00:00 97 H 22 98 01/05/20 20:02 98.8 F 97 H 22 158/98 96 01/05/20 20:00 89 01/05/20 19:12 96 01/05/20 16:00 98.2 F 118 H 18 145/103 99 01/05/20 12:00 98.9 F 99 H 18 142/97 Pain Assessment - Last Documented Pain Intensity 0 Intake and Output: Intake & Output 01/03/20 01/04/20 01/05/20 01/06/20 11:59 11:59 11:59 11:59 Intake Total 487 1840 Balance 487 1840 Weight 62 kg 63.7 kg Lab Results: Lab Results-Last 24 Hours 01/05/20 01/05/20 01/06/20 Range/Units 05:40 08:36 04:15 WBC 4.6 (4.0-10.5) K/mm3 RBC 2.90 L (4.1-5.6) M/mm3 Hgb 10.3 L (12.5-18.0) gm/dl Hct 31.7 L (42-50) % MCV 109.3 H (78-100) fl MCH 35.5 H (26-32) pg MCHC 32.5 (32-36) g/dl RDW 12.6 (11.5-14.0) % Plt Count 85 L (150-450) K/mm3 MPV 11.2 H (7.5-11.0) fl Gran % 63.5 (36.0-66.0) % Eos # (Auto) 0.02 (0-0.5) Absolute Lymphs (auto) 0.83 L (1.0-4.6) Absolute Monos (auto) 0.80 (0.0-1.3) Lymphocytes % 18.2 L (24.0-44.0) % Monocytes % 17.5 H (0.0-12.0) % Eosinophils % 0.4 (0.00-5.0) % Basophils % 0.4 (0.0-0.4) % Absolute Granulocytes 2.90 (1.4-6.9) Basophils # 0.02 (0-0.4) Sodium (137-145) mmol/L Potassium 3.5 (3.5-5.1) mmol/L Chloride (98-107) mmol/L Carbon Dioxide (22-30) mmol/L Anion Gap (5-15) MEQ/L BUN (9-20) mg/dL Creatinine (0.66-1.25) mg/dL Estimated GFR ML/MIN Glucose (74-106) mg/dL Calcium (8.4-10.2) mg/dL Magnesium (1.6-2.3) mg/dL Total Bilirubin (0.2-1.3) mg/dL AST (17-59) U/L ALT (0-50) U/L Alkaline Phosphatase (38-126) U/L Serum Total Protein (6.3-8.2) g/dL Albumin (3.5-5.0) g/dL Prealbumin 19.15 (17.6-36.0) mg/dL Slides for Path Review YES 01/06/20 Range/Units 04:15 WBC (4.0-10.5) K/mm3 RBC (4.1-5.6) M/mm3 Hgb (12.5-18.0) gm/dl Hct (42-50) % MCV (78-100) fl MCH (26-32) pg MCHC (32-36) g/dl RDW (11.5-14.0) % Plt Count (150-450) K/mm3 MPV (7.5-11.0) fl Gran % (36.0-66.0) % Eos # (Auto) (0-0.5) Absolute Lymphs (auto) (1.0-4.6) Absolute Monos (auto) (0.0-1.3) Lymphocytes % (24.0-44.0) % Monocytes % (0.0-12.0) % Eosinophils % (0.00-5.0) % Basophils % (0.0-0.4) % Absolute Granulocytes (1.4-6.9) Basophils # (0-0.4) Sodium 134 L (137-145) mmol/L Potassium 3.0 L (3.5-5.1) mmol/L Chloride 101 (98-107) mmol/L Carbon Dioxide 30 (22-30) mmol/L Anion Gap 5.7 (5-15) MEQ/L BUN 10 (9-20) mg/dL Creatinine 0.83 (0.66-1.25) mg/dL Estimated GFR > 60.0 ML/MIN Glucose 101 (74-106) mg/dL Calcium 8.3 L (8.4-10.2) mg/dL Magnesium 1.5 L (1.6-2.3) mg/dL Total Bilirubin 1.20 (0.2-1.3) mg/dL AST 67 H (17-59) U/L ALT 44 (0-50) U/L Alkaline Phosphatase 100 (38-126) U/L Serum Total Protein 5.3 L (6.3-8.2) g/dL Albumin 2.6 L (3.5-5.0) g/dL Prealbumin (17.6-36.0) mg/dL Slides for Path Review Radiology Exams: Radiology Procedures Category Date Time Status ABDOMEN AND PELVIS W/0 CONTRAS [CT] Stat Exams 01/04/20 21:49 Completed CHEST 1 VIEW (PORTABLE) Stat Exams 01/04/20 19:36 Completed HEAD WITHOUT CONTRAST [CT] Stat Exams 01/04/20 19:36 Completed MRI BRAIN WITH CONTRAST [MRI] Routine Exams 01/06/20 08:15 Ordered Assessment/Plan (1) Wernicke encephalopathy syndrome Current Visit: Yes Status: Acute Assessment & Plan: suspected based on history, significant impairment to finger to nose but no obvious eye abnormalities. will continue IV thiamine 500mg tid today, will attempt to complete teleneuro consult today. MRI brain ordered and EEG Code(s): E51.2 - WERNICKE'S ENCEPHALOPATHY (2) Alcohol withdrawal Current Visit: Yes Status: Acute Assessment & Plan: continue ativan via [facility] protocol Code(s): F10.239 - ALCOHOL DEPENDENCE WITH WITHDRAWAL, UNSPECIFIED (3) Seizure Current Visit: Yes Status: Acute Assessment & Plan: suspect alcohol withdrawal as culprit but history of last drink is very unclear, will attempt MRI and EEG today Code(s): R56.9 - UNSPECIFIED CONVULSIONS
[2020-01-06] MEDS ORDERED: K-LYTE 25 MEQ PO ONE (08:30)
[2020-01-06] MEDS: Magnesium 1 Gm / 100 Ml D5W*** 100 ML IV SCH ×2 (08:35→09:30)
[2020-01-06] MEDS: THIAMINE 200 MG/2 ML IV SCH ×3 (09:30→21:04)
[2020-01-06] MEDS: Ativan 2 MG/1 ML VIAL IV PRN ×11 (10:11→23:54)
[2020-01-06] MEDS ORDERED: THIAMINE 200 MG/2 ML ONE ×2 (20:29→20:31)
[2020-01-07] MEDS: Dextrose 5%-Lr IV Solution 1000 ML 1,000 ML IV SCH ×2 (03:06→12:56)
[2020-01-07] MEDS: Ativan 2 MG/1 ML VIAL IV PRN ×6 (06:07→19:28)
[2020-01-07 06:36] LABS: Absolute Neutrophil Ct (ANC) 2.55 (1.4-6.9); BASOPHIL % 0.7 % (0.0-0.4); Basophil (Absolute #) 0.03 (0-0.4); Eosinophil % 0.9 % (0.00-5.0); Eosinophil (Absolute #) 0.04 (0-0.5); Hematocrit 34.5 % (42-50); Hemoglobin 11.2 gm/dl (12.5-18.0); Lymphocyte (Absolute #) 0.82 (1.0-4.6); Lymphocytes % 18.2 % (24.0-44.0); Mean Cell Volume 110.6 fl (78-100); Mean Corpuscular Hemoglobin 35.9 pg (26-32); Mean Corpuscular Hgb Concent. 32.5 g/dl (32-36); Monocyte (Absolute #) 1.07 (0.0-1.3); Monocytes % 23.7 % (0.0-12.0); Neutrophil % 56.5 % (36.0-66.0); Platelet Count 110 K/mm3 (150-450); Red Blood Count 3.12 M/mm3 (4.1-5.6); Red Cell Distribution Width 12.7 % (11.5-14.0); White Blood Count 4.5 K/mm3 (4.0-10.5)
[2020-01-07 06:56] LABS: ALBUMIN 2.8 g/dL (3.5-5.0); ALKALINE PHOSPHATASE 109 U/L (38-126); ANION GAP 6.5 MEQ/L (5-15); BLOOD UREA NITROGEN 4 mg/dL (9-20); CHLORIDE 102 mmol/L (98-107); Calcium 8.6 mg/dL (8.4-10.2); Carbon Dioxide 31 mmol/L (22-30); Creatinine 1 0.86 mg/dL (0.66-1.25); EST GLOMERULAR FILTRATION RATE > 60.0 ML/MIN; Glucose 112 mg/dL (74-106); MAGNESIUM 1.7 mg/dL (1.6-2.3); Potassium 3.5 mmol/L (3.5-5.1); SGOT/AST 95 U/L (17-59); SGPT/ALT 44 U/L (0-50); SODIUM 136 mmol/L (137-145); Total Protein 5.7 g/dL (6.3-8.2)
[2020-01-07] MEDS ORDERED: Ativan 2 MG/1 ML VIAL IV ONE (08:43)
--- NOTE | 2020-01-07 08:58 | PCM.NOTE ---
Date and Time: 01/07/20850 Subjective Assessment: Pt has been disoriented overnight. He is not oriented to place for me. Asking to go home. Tolerating po, stays breakfast is good. BP up to 176 systolic this morning. Unable to hold still for MRI brain yesterday, pt was too restless. He did get EEG yesterday with some difficulty. - Review of Systems Constitutional: No Fever Objective Exam General Appearance: no apparent distress, anxiety Neurologic Exam: cooperative, disoriented Skin Exam: normal color, warm, dry, No rash Respiratory Exam: normal breath sounds, lungs clear, No crackles/rales, No rhonchi, No wheezing Cardiovascular Exam: regular rate/rhythm, normal heart sounds, No murmur Gastrointestinal/Abdomen Exam: soft, normal bowel sounds, No tenderness, No distention Extremity Exam: No pedal edema, No swelling OBJECTIVE DATA Vital Signs: Vital Signs - 24 hr Temp Pulse Resp BP BP Pulse Ox 01/07/20 07:45 98.8 F 68 20 176/110 96 01/07/20 07:21 90 01/07/20 06:10 99.2 F 94 H 16 158/106 96 01/06/20 23:57 99 F 98 H 20 139/108 99 01/06/20 20:00 84 01/06/20 19:30 89 16 156/116 159/108 98 01/06/20 19:14 98 01/06/20 16:00 95 H 18 158/98 96 01/06/20 15:56 87 01/06/20 13:50 97 01/06/20 12:00 98 F 87 18 153/108 96 01/06/20 11:56 84 Pain Assessment - Last Documented Pain Intensity 0 Intake and Output: Intake & Output 01/04/20 01/05/20 01/06/20 01/07/20 11:59 11:59 11:59 11:59 Intake Total 487 2080 1471 Output Total 1025 Balance 487 2080 446 Weight 62 kg 63.7 kg 65 kg Lab Results: Lab Results-Last 24 Hours 01/07/20 01/07/20 Range/Units 06:30 06:30 WBC 4.5 (4.0-10.5) K/mm3 RBC 3.12 L (4.1-5.6) M/mm3 Hgb 11.2 L (12.5-18.0) gm/dl Hct 34.5 L (42-50) % MCV 110.6 H (78-100) fl MCH 35.9 H (26-32) pg MCHC 32.5 (32-36) g/dl RDW 12.7 (11.5-14.0) % Plt Count 110 L (150-450) K/mm3 MPV 10.0 (7.5-11.0) fl Gran % 56.5 (36.0-66.0) % Eos # (Auto) 0.04 (0-0.5) Absolute Lymphs (auto) 0.82 L (1.0-4.6) Absolute Monos (auto) 1.07 (0.0-1.3) Lymphocytes % 18.2 L (24.0-44.0) % Monocytes % 23.7 H (0.0-12.0) % Eosinophils % 0.9 (0.00-5.0) % Basophils % 0.7 (0.0-0.4) % Absolute Granulocytes 2.55 (1.4-6.9) Basophils # 0.03 (0-0.4) Sodium 136 L (137-145) mmol/L Potassium 3.5 (3.5-5.1) mmol/L Chloride 102 (98-107) mmol/L Carbon Dioxide 31 H (22-30) mmol/L Anion Gap 6.5 (5-15) MEQ/L BUN 4 L (9-20) mg/dL Creatinine 0.86 (0.66-1.25) mg/dL Estimated GFR > 60.0 ML/MIN Glucose 112 H (74-106) mg/dL Calcium 8.6 (8.4-10.2) mg/dL Magnesium 1.7 (1.6-2.3) mg/dL Total Bilirubin 1.00 (0.2-1.3) mg/dL AST 95 H (17-59) U/L ALT 44 (0-50) U/L Alkaline Phosphatase 109 (38-126) U/L Serum Total Protein 5.7 L (6.3-8.2) g/dL Albumin 2.8 L (3.5-5.0) g/dL Multi-Disciplinary Progress Notes: Multi-Disciplinary Progress Notes 01/06/20 13:24 Case Management Note by Tracey Burris ROBERT RETURNED CALL FROM PRIMARY NURSE- HE STATES PATIENT IS NORMALLY INDEPENDENT AT HOME WITH ALL ADLS, HE DOESNT USE ANY MEDICAL EQUIPMENT AND HE LIVES BY HIMSELF. HE DOESNT HAVE ANY ISSUES WITH UTILITIES, TRANSPORTATION OR FOOD. ROBERT REPORTS PATIENT ONLY HAS A FEW FAMILY MEMBERS LEFT AND HIS DAD'S NAME IS "JODY" BUT HE DOESN'T KNOW HIS NUMBER OR ANYTHING ELSE. HE STATES ABOUT 2 MONTHS AGO PATIENT HAD A SEIZURE WHILE AT WORK AND WAS TAKEN TO [facility]. HE WAS DCD FROM THE ER AND WAS PER HIS REPORT STILL "DELUSIONAL" AT THE TIME THEY SENT HIM HOME. HE WAS SUPPOSED TO F/U AFTER THAT BUT HE NEVER DID. HE REPORTS HIS PRIMARY CARE DOCTOR "FIRED" HIM FOR NOT COMING TO FOLLOW UP APPOINTMENTS. PRIMARY RN NOTIFIED OF THE ABOVE INFORMATION Initialized on 01/06/20 13:24 - END OF NOTE 01/06/20 10:29 Case Management Note by Karen Gupta SPOKE WITH PATIENT TO ATTEMPT AND ASSESS DISCHARGE NEEDS. PT NOT ORIENTED ENOUGH FOR DISCHARGE ASSESSMENT, STATES HE LIVES WITH HIS AUNT AND FATHER, NUMBER GIVEN FOR AUNT IS DISCONNECTED, NUMBER HE GAVE FOR "[employer]ON[employer]" IS NOT CORRECT. PRIMARY NURSE IS ASSISTING PT TO CHARGE CELL PHONE AND ATTEMPT TO GET CONTACT NUMBER FROM IT. Initialized on 01/06/20 10:29 - END OF NOTE Assessment/Plan (1) Hypertension Current Visit: Yes Status: Acute Qualifiers: Hypertension type: essential hypertension Qualified Code(s): I10 - Essential (primary) hypertension Code(s): I10 - ESSENTIAL (PRIMARY) HYPERTENSION (2) Alcohol withdrawal Current Visit: Yes Status: Acute Qualifiers: Complication of substance-induced condition: with delirium Qualified Code(s): F10.231 - Alcohol dependence with withdrawal delirium Assessment & Plan: BP elevated - will add in his home lisinopril. PRN clonidine. Required ativan q 1h yesterday, but only 3x during the night and once this morning. Code(s): F10.239 - ALCOHOL DEPENDENCE WITH WITHDRAWAL, UNSPECIFIED (3) Seizure Current Visit: Yes Status: Acute Assessment & Plan: await EEG results. Code(s): R56.9 - UNSPECIFIED CONVULSIONS (4) Wernicke encephalopathy syndrome Current Visit: Yes Status: Acute Assessment & Plan: on thiamine. WIll attempt MRI again today, with preload of ativan. Code(s): E51.2 - WERNICKE'S ENCEPHALOPATHY
[2020-01-07] MEDS: ENOXAPARIN SODIUM SQ SCH (09:12)
[2020-01-07] MEDS: THIAMINE 200 MG/2 ML IV SCH (09:12)
[2020-01-07] MEDS: Zestril 20 MG PO SCH (11:11)
--- NOTE | 2020-01-07 16:32 | XRAY ---
Indication: Seizure. Alcohol detoxification. Sagittal, coronal, and axial MRI brain was performed using pre and post T1, T2, FLAIR, diffusion, and ADC sequences. 10 cc Dotarem contrast used. Comparison: None Ventriculosulcal pattern appears symmetric. No acute intracranial hemorrhage, abnormal extra-axial fluid collection, or mass effect. Diffusion images are negative for restricted signal. Following gadolinium, there is no abnormal enhancing intra or extra-axial mass. Fourth ventricle is midline without hydrocephalus. 7/8 cranial nerve complex bilaterally symmetric. Normal flow void signal within the major intracerebral circulation. Normal appearing craniocervical junction and sella turcica. Paranasal sinuses are clear. Impression: Negative MRI brain with contrast exam.
[2020-01-08] MEDS: Ativan 2 MG/1 ML VIAL IV PRN ×2 (00:13→12:45)
[2020-01-08] MEDS: Dextrose 5%-Lr IV Solution 1000 ML 1,000 ML IV SCH ×2 (00:39→09:42)
[2020-01-08] MEDS: Catapres 0.1 MG PO PRN (04:32)
[2020-01-08] MEDS ORDERED: Catapres 0.1 MG PO ONE (05:40)
[2020-01-08] MEDS: THIAMINE IV SCH (08:58)
[2020-01-08] MEDS: SODIUM CHLORIDE 0.9% IV SCH (08:58)
[2020-01-08] MEDS: ENOXAPARIN SODIUM SQ SCH (08:58)
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
[2020-01-08] MEDS: Zestril 20 MG PO SCH (09:13)
[2020-01-08] MEDS: NORVASC 5 MG PO SCH (09:14)
[2020-01-08] MEDS ORDERED: THIAMINE 200 MG/2 ML IV SCH (10:00)
[2020-01-09 04:56] LABS: Hematocrit 33.1 % (42-50); Hemoglobin 10.8 gm/dl (12.5-18.0); Mean Cell Volume 111.4 fl (78-100); Mean Corpuscular Hemoglobin 36.4 pg (26-32); Mean Corpuscular Hgb Concent. 32.6 g/dl (32-36); Mean Platelet Volume 9.8 fl (7.5-11.0); Platelet Count 147 K/mm3 (150-450); Red Blood Count 2.97 M/mm3 (4.1-5.6); Red Cell Distribution Width 13.1 % (11.5-14.0); White Blood Count 3.8 K/mm3 (4.0-10.5)
[2020-01-09 05:19] LABS: ALBUMIN 2.6 g/dL (3.5-5.0); ALKALINE PHOSPHATASE 80 U/L (38-126); ANION GAP 6.5 MEQ/L (5-15); BLOOD UREA NITROGEN 5 mg/dL (9-20); CHLORIDE 107 mmol/L (98-107); Calcium 8.3 mg/dL (8.4-10.2); Carbon Dioxide 27 mmol/L (22-30); Creatinine 1 0.82 mg/dL (0.66-1.25); EST GLOMERULAR FILTRATION RATE > 60.0 ML/MIN; Glucose 92 mg/dL (74-106); MAGNESIUM 1.2 mg/dL (1.6-2.3); Potassium 3.4 mmol/L (3.5-5.1); SGOT/AST 59 U/L (17-59); SGPT/ALT 32 U/L (0-50); SODIUM 137 mmol/L (137-145); Total Protein 5.3 g/dL (6.3-8.2)
[2020-01-09 05:46] LABS: Basophil 1 % (0.0-1.0); Lymphocytes 22 % (24-44); Monocyte 19 % (0.0-12.0); Neutrophils 58 % (36.-66.); Platelet Estimate NORMAL (NORMAL); Total Cells Counted 100
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
[2020-01-09] MEDS: ENOXAPARIN SODIUM SQ SCH (09:28)
[2020-01-09] MEDS: Magnesium 1 Gm / 100 Ml D5W*** 100 ML IV SCH ×2 (09:28→10:09)
[2020-01-09] MEDS: Zestril 20 MG PO SCH (09:28)
[2020-01-09] MEDS: MAG-OX 400 PO SCH (09:28)
[2020-01-09] MEDS: NORVASC 5 MG PO SCH (09:28)
[2020-01-09] MEDS: THIAMINE IV SCH (11:04)
[2020-01-09] MEDS: SODIUM CHLORIDE 0.9% IV SCH (11:04)
[2020-01-09] MEDS: Ativan 2 MG/1 ML VIAL IV PRN (11:18)
[2020-01-09] MEDS: Catapres 0.1 MG PO PRN (16:16)
[2020-01-10 04:59] LABS: Hematocrit 33.1 % (42-50); Hemoglobin 10.8 gm/dl (12.5-18.0); Mean Cell Volume 111.1 fl (78-100); Mean Corpuscular Hemoglobin 36.2 pg (26-32); Mean Corpuscular Hgb Concent. 32.6 g/dl (32-36); Platelet Count 169 K/mm3 (150-450); Red Blood Count 2.98 M/mm3 (4.1-5.6); Red Cell Distribution Width 12.8 % (11.5-14.0); White Blood Count 5.5 K/mm3 (4.0-10.5)
[2020-01-10 05:17] LABS: ALBUMIN 2.6 g/dL (3.5-5.0); ALKALINE PHOSPHATASE 85 U/L (38-126); ANION GAP 6.1 MEQ/L (5-15); BLOOD UREA NITROGEN 10 mg/dL (9-20); CHLORIDE 104 mmol/L (98-107); Calcium 8.5 mg/dL (8.4-10.2); Carbon Dioxide 28 mmol/L (22-30); Creatinine 1 0.85 mg/dL (0.66-1.25); EST GLOMERULAR FILTRATION RATE > 60.0 ML/MIN; Glucose 93 mg/dL (74-106); MAGNESIUM 1.5 mg/dL (1.6-2.3); Potassium 3.3 mmol/L (3.5-5.1); SGOT/AST 49 U/L (17-59); SGPT/ALT 28 U/L (0-50); SODIUM 135 mmol/L (137-145); Total Protein 5.4 g/dL (6.3-8.2)
[2020-01-10 07:41] LABS: BAND 9 % (0.0-2.0); Eosinophil 1 % (0.00-3.0); Lymphocytes 17 % (24-44); Monocyte 20 % (0.0-12.0); Neutrophils 53 % (36.-66.); Platelet Estimate NORMAL (NORMAL); Polychromasia 1+; Total Cells Counted 100
[2020-01-10 07:56] VITALS: O2SAT 97
[2020-01-10] MEDS ORDERED: K-LYTE 25 MEQ PO ONE (08:49)
--- NOTE | 2020-01-10 08:55 | PCM.DS ---
Discharge Summary Date of Admission: 01/05/20 09:15 Admitting Physician: KATHARINE FERNANDEZ Consults: Consults on Case 01/05/20 09:20 Consult Neurology ROUTINE 01/08/20 10:48 Tele-Health Consult ROUTINE Primary Care Provider: Unknown Provider Allergies Allergies No Known Drug Allergies Allergy (Unverified 01/04/20 19:18) Hospital Summary - Hospital Course Hospital Course: patient was admitted with seizure and alcohol detox, eeg and MRI were normal. seizure attributed to alcohol withdrawal, he is stable with gait, taking po and no longer exhibiting signs of withdrawal and has not required ativan in the last 24 hours. he was treated with IV thiamine and improved while detox process - Vitals & Intake/Output Vital Signs: Vital Signs Temperature 98.1 F 01/10/20 07:55 Pulse Rate 79 01/10/20 07:55 Respiratory Rate 14 01/10/20 07:55 Blood Pressure 163/110 01/10/20 07:55 O2 Sat by Pulse Oximetry 97 01/10/20 07:55 Intake & Output: Intake & Output 01/07/20 01/08/20 01/09/20 01/10/20 11:59 11:59 11:59 11:59 Intake Total 1471 3740 820 420 Output Total 1025 900 200 550 Balance 446 2840 620 -130 Weight 65 kg 64.9 kg 63.2 kg - Lab Result Diagrams: 01/10/20 04:25 01/10/20 04:25 Lab Results-Last 24 Hrs: Lab Results-Last 24 Hours 01/10/20 01/10/20 Range/Units 04:25 04:25 WBC 5.5 (4.0-10.5) K/mm3 RBC 2.98 L (4.1-5.6) M/mm3 Hgb 10.8 L (12.5-18.0) gm/dl Hct 33.1 L (42-50) % MCV 111.1 H (78-100) fl MCH 36.2 H (26-32) pg MCHC 32.6 (32-36) g/dl RDW 12.8 (11.5-14.0) % Plt Count 169 (150-450) K/mm3 MPV 10.0 (7.5-11.0) fl Absolute Granulocytes 3.40 (1.4-6.9) Segmented Neutrophils 53 (36.-66.) % Band Neutrophils 9 H (0.0-2.0) % Lymphocytes (Manual) 17 L (24-44) % Monocytes (Manual) 20 H (0.0-12.0) % Eosinophils (Manual) 1 (0.00-3.0) % Platelet Estimate NORMAL (NORMAL) RBC Morphology ABNORMAL Polychromasia 1+ Sodium 135 L (137-145) mmol/L Potassium 3.3 L (3.5-5.1) mmol/L Chloride 104 (98-107) mmol/L Carbon Dioxide 28 (22-30) mmol/L Anion Gap 6.1 (5-15) MEQ/L BUN 10 (9-20) mg/dL Creatinine 0.85 (0.66-1.25) mg/dL Estimated GFR > 60.0 ML/MIN Glucose 93 (74-106) mg/dL Calcium 8.5 (8.4-10.2) mg/dL Magnesium 1.5 L (1.6-2.3) mg/dL Total Bilirubin 0.40 (0.2-1.3) mg/dL AST 49 (17-59) U/L ALT 28 (0-50) U/L Alkaline Phosphatase 85 (38-126) U/L Serum Total Protein 5.4 L (6.3-8.2) g/dL Albumin 2.6 L (3.5-5.0) g/dL Micro Results-Entire Visit: Microbiology 01/04/20 19:36 Urine Culture - Final Urine, Void MIXED AYO; 3 OR MORE TYPES. NO PREDOMINANT ORGANISM. NO FURTHER WORKUP. PLEASE RESUBMIT IF CLINICALLY INDICATED. - Procedures and Test Procedures and Tests throughout Hospitalization: Therapy Orders & Screens 01/05/20 01:38 Oxygen Nasal Cannula 2 lpm Comment: Respiratory Therapy Consult ROUTINE Comment: Reason For Exam: 01/05/20 04:00 EKG REPEAT IN AM Comment: 01/06/20 08:15 EEG 41-60 Minutes (Normal) ONCE Comment: Reason For Exam: Diagnosis: new onset seizure Discharge Exam General Appearance: no apparent distress Neurologic Exam: alert, oriented x 3, cooperative Respiratory Exam: normal breath sounds, lungs clear, No respiratory distress Cardiovascular Exam: regular rate/rhythm, normal heart sounds Gastrointestinal/Abdomen Exam: soft, No tenderness, No mass Extremity Exam: normal inspection, normal range of motion Skin Exam: normal color, warm, dry Final Diagnosis/Problem List - Final Discharge Diagnosis/Problem (1) Wernicke encephalopathy syndrome Current Visit: Yes Status: Acute Code(s): E51.2 - WERNICKE'S ENCEPHALOPATHY (2) Seizure Current Visit: Yes Status: Acute Code(s): R56.9 - UNSPECIFIED CONVULSIONS (3) Alcohol withdrawal Current Visit: Yes Status: Acute Code(s): F10.239 - ALCOHOL DEPENDENCE WITH WITHDRAWAL, UNSPECIFIED (4) Hypertension Current Visit: Yes Status: Acute Code(s): I10 - ESSENTIAL (PRIMARY) HYPERTENSION - Discharge Disposition: Home, Self-Care Condition: Stable Prescriptions: New Amlodipine Besylate 5 mg [Norvasc 5 mg] 5 mg PO QAM #30 tablet Thiamine HCl 100 mg [Vitamin B-1 100 mg] 100 mg PO DAILY #30 tablet Continue Lisinopril 20 mg [Zestril 20 MG] 1 tab PO DAILY #30 tablet Instructions: Alcohol Withdrawal (DC), Alcohol Abuse and Alcoholism (DC) Additional Instructions: please call [facility] at [phone] to set up appointment FOLLOW UP WITH YOUR FAMILY PHYSICIAN IN A WEEK. Follow up with: Provider,Unknown [Primary Care Provider] - ALLEN MENON FACILITIES ENGINEERING MANAGER [Family Provider] - 1 Week
[2020-01-10] MEDS: NORVASC 5 MG PO SCH (10:13)
[2020-01-10] MEDS: Zestril 20 MG PO SCH (10:13)
[2020-01-10] MEDS: MAG-OX 400 PO SCH (10:13)
[2020-01-10] MEDS: SODIUM CHLORIDE 0.9% IV SCH (10:15)
[2020-01-10] MEDS: THIAMINE IV SCH (10:15)
[2020-01-10] MEDS: ENOXAPARIN SODIUM SQ SCH (10:21)
[2020-01-10 13:04] VITALS: BP 168/106; PULSE 83
== END 2020-01-10 15:27 | disposition home or self-care (01) | DRG 641 ==
LOC: ED 19:17 → ICU 01-05 02:53 → OBSVTOIN 01-05 09:15
PROVIDERS: ADMIT Family Medicine; ATTEND Family Medicine
DX: E51.2 Wernicke's encephalopathy (principal); F10.239 Alcohol dependence with withdrawal, unspecified; R56.9 Unspecified convulsions; I10 Essential (primary) hypertension
CPT/HCPCS: 36000; 36415; 70450; 70553; 71045; 74176; 80048; 80053; 80307; 81001; 82140; 82947; 83735; 84132; 84134; 84484; 85025; 87086; 90686; 93005; 94760; 95812; 96372; 96374; 96375; 99285; G0008; J1650; J2060; J2405; J3475; J3480; Q2009; Q3014; A9270-GY; G0480